=== PATIENT | male | born 1985 | race Caucasian/White ===

== ENCOUNTER 2016-12-10 15:14 | Emergency (ER) | payer BC ==
[~2016-12-10 15:14] MED LIST: DOXYCYCLINE HY100 M1 PO; ELIMITE60 GM TOP; FLEXERIL10 MG PO; FLOXIN10 ML AU; KEFLEX PO; MOBIC PO; MOTRIN600 M1 PO; NABUMETONE PO; NO MEDICATIONS; POLYSPORIN15 GM EXT; ULTRAM PO; VISTARIL PO
== END 2016-12-10 15:48 | disposition home or self-care (01) ==
LOC: SED 15:14
DX: H60.91 Unspecified otitis externa, right ear (principal); F17.200 Nicotine dependence, unspecified, uncomplicated
CPT/HCPCS: 99282